=== PATIENT | female | born 1990 | race Caucasian/White ===

== ENCOUNTER 2019-12-25 23:24 | Emergency (ER) | payer OTHER ==
[~2019-12-25] VITALS: Ht 154.9 cm; Wt 92.6 kg
[2019-12-25 23:24] VITALS: BP 127/86
[~2019-12-25 23:24] MED LIST: DOXY100T PO; IBUP200T44 PO; ONDA4TAB7 PO; PRE NATAL
[2019-12-26 00:23] LABS: BASO % 1 % (0-3); EOS # 0.2 x10^3/uL (0.0-0.7); EOS % 2 % (0-3); HEMOGLOBIN 13.6 g/dL (12.0-15.5); LYMPH # 2.2 x10^3/uL (1.0-4.8); LYMPH % 30 % (24-48); MEAN CORPUSCULAR HEMOGLOBIN 30 pg (25-35); MEAN CORPUSCULAR HGB CONC 33 g/dL (31-37); MEAN CORPUSCULAR VOLUME 90 fL (79-100); MONO # 0.4 x10^3/uL (0.0-1.1); MONO % 6 % (0-9); NEUT # 4.6 x10^3uL (1.8-7.7); NEUT % 62 % (31-73); PLATELET COUNT 198 x10^3/uL (140-400); RED BLOOD COUNT 4.55 x10^6/uL (3.50-5.40); RED CELL DISTRIBUTION WIDTH 12.7 % (11.5-14.5); WHITE BLOOD COUNT 7.5 x10^3/uL (4.0-11.0)
--- NOTE | 2019-12-26 01:20 | RAD ---
INDICATION: Reason: vaginal bleeding, / Spl. Instructions: / History: COMPARISON: None. TECHNIQUE: Grayscale and color ultrasound images uterus and adnexa. Transvaginal images were obtained better visualize structures FINDINGS: The bilateral maternal ovaries are obscured. Uterus measures 110 x 71 x 62 mm. Intrauterine gestational sac is identified with a pole seen with crown-rump length of 5 mm and a heartbeat of 127. Too early in to adequately assess placenta. IMPRESSION: * Intrauterine is identified with estimated gestational age of 6 weeks and 1 day with a positive heartbeat. Recommend routine anomaly screening at 18-22 weeks. Electronically signed by: Raciel Oro MD (12/26/2019 1:17 AM) [id number]
[2019-12-26 02:27] LABS: BACTERIA,URINE 0 /HPF (0-FEW); BILIRUBIN,URINE NEG (NEG); CLARITY,URINE CLEAR; COLOR,URINE YELLOW; GLUCOSE,URINE NEG (NEG); NITRITE,URINE NEG (NEG); RBC,URINE 0 /HPF (0-2); SQUAMOUS EPITHELIAL CELL,UR OCC /LPF; UROBILINOGEN,URINE 0.2 mg/dL (0.2 mg/dL); WBC,URINE OCC /HPF (0-4)
--- NOTE | 2019-12-26 02:30 | PHYS DOC ---
Past History Past Medical History: No Pertinent History Past Surgical History: Cholecystectomy, Smoking: Non-smoker Alcohol Use: Occasionally Drug Use: None Adult General Chief Complaint Chief Complaint: ABDOMINAL PAIN IN HPI HPI Patient is a 29-year-old G6, P3 who presents to the emergency room with vaginal bleeding and cramping. Patient is unsure how far along she is. She has had a positive test 2 weeks ago. She states that it was a small amount of bleeding. She is unsure when her last period was. She denies any other compla ints. She has not had any urinary symptoms. Review of Systems Review of Systems General: Denies fever, chills, sweats, fatigue Eyes: Denies drainage, blurred vision, eye redness HENT: Denies rhinorrhea, sore throat, earache Respiratory: Denies cough, shortness of breath, wheezing Cardiac: Denies edema, palpitations, chest pain GI: Denies abdominal pain, Nausea, vomiting MSK: Denies back pain, neck pain Skin: Denies rash, jaundice Neuro: Denies headache, dizziness Psychiatric: Denies SI/HI Allergies Allergies Allergies Coded Allergies Type Severity Reaction Last Updated Verified latex Allergy Mild rash 06/27/14 Yes Physical Exam Physical Exam General: Awake, alert, NAD. Well Nourished, well hydrated. Cooperative HEENT: Atraumatic, EOMI, PERRL, airway patent, moist oral mucosa Neck: Supple, trachea midline Respiratory: CTA bilaterally, normal effort, no wheezing/crackles CV: RRR, no murmur, cap refill <2 GI: Soft, nondistended, nontender, no masses MSK: No obvious deformities Skin: Warm, dry, intact Neuro: A&O x3, speech NL, sensory and motor grossly intact, no focal deficits Psych: Normal affect, normal mood, not suicidal or homicidal Current Patient Data Vital Signs Vital Signs Date Time Temp Pulse Resp B/P (MAP) Pulse Ox O2 Delivery O2 Flow Rate FiO2 12/25/19 23:24 98.7 79 16 127/86 (100) 98 Room Air Lab Results Laboratory Tests Test 12/26/19 00:10 12/26/19 01:55 12/26/19 02:16 White Blood Count 7.5 x10^3/uL (4.0-11.0) Red Blood Count 4.55 x10^6/uL (3.50-5.40) Hemoglobin 13.6 g/dL (12.0-15.5) Hematocrit 41.0 % (36.0-47.0) Mean Corpuscular Volume 90 fL (79-100) Mean Corpuscular Hemoglobin 30 pg (25-35) Mean Corpuscular Hemoglobin Concent 33 g/dL (31-37) Red Cell Distribution Width 12.7 % (11.5-14.5) Platelet Count 198 x10^3/uL (140-400) Neutrophils (%) (Auto) 62 % (31-73) Lymphocytes (%) (Auto) 30 % (24-48) Monocytes (%) (Auto) 6 % (0-9) Eosinophils (%) (Auto) 2 % (0-3) Basophils (%) (Auto) 1 % (0-3) Neutrophils # (Auto) 4.6 x10^3uL (1.8-7.7) Lymphocytes # (Auto) 2.2 x10^3/uL (1.0-4.8) Monocytes # (Auto) 0.4 x10^3/uL (0.0-1.1) Eosinophils # (Auto) 0.2 x10^3/uL (0.0-0.7) Basophils # (Auto) 0.0 x10^3/uL (0.0-0.2) Urine Collection Type Unknown Urine Color Yellow Urine Clarity Clear Urine pH 7.0 Urine Specific [place] 1.025 Urine Protein Neg (NEG-TRACE) Urine Glucose (UA) Neg mg/dL (NEG) Urine Ketones (Stick) Trace mg/dL (NEG) Urine Blood Neg (NEG) Urine Nitrite Neg (NEG) Urine Bilirubin Neg (NEG) Urine Urobilinogen Dipstick 0.2 mg/dL (0.2 mg/dL) Urine Leukocyte Esterase Neg (NEG) Urine RBC 0 /HPF (0-2) Urine WBC Occ /HPF (0-4) Urine Squamous Epithelial Cells Occ /LPF Urine Bacteria 0 /HPF (0-FEW) POC Urine HCG, Qualitative hcg positive (Negative) EKG EKG [] Radiology/Procedures Radiology/Procedures [] Heart Score Risk Factors: Risk Factors: DM, Current or recent (<one month) smoker, HTN, HLP, family history of CAD, obesity. Risk Scores: Risk Factors: DM, Current or recent (<one month) smoker, HTN, HLP, family history of CAD, obesity. Course & Med Decision Making Course & Med Decision Making Pertinent Labs and Imaging studies reviewed. (See chart for details) Patient is a 29 year-old G 6 P 3 who presents to the Emergency Room with vaginal bleeding and abdominal cramping. Patient has been on seen passage of tissue. She has not had a formal ultrasound and does not have a confirmed IUP. UA, Rh type, OB ultrasound, test were ordered. At this time, ultrasound shows IUP. Patient does not need rhogam. I have discussed with the patient that they are likely have a threatened . We have discussed early on in we are unable to prevent miscarriages. We will discussed pelvic rest until she follows up with OBGYN. She will return to the Emergency Room if she has a large amount of bleeding, syncope, SOB. Patient's test results and vitals while in the ED were fully reviewed and discussed with the patient. Patient is stable and at this time does not need admission to the hospital. We have discussed strict return precautions and the importance of following up with their Primary Care Physician. Patient stated understanding and was given an opportunity to ask any questions. Dragon Disclaimer Dragon Disclaimer This electronic medical record was generated, in whole or in part, using a voice recognition dictation system. Departure Departure: Impression: Primary Impression: Bleeding in early Disposition: 01 DC HOME SELF CARE/HOMELESS Condition: STABLE Referrals: MINE CARRILLO MD (PCP) Patient Instructions: Vaginal Bleeding During , First Trimester TAE IVERSON MD Dec 26, 2019 02:30
== END 2019-12-26 02:50 | disposition home or self-care (01) ==
LOC: ER 23:24
DX: O46.91 Antepartum hemorrhage, unspecified, first trimester (principal); Z3A.01 Less than 8 weeks gestation of pregnancy; Z90.49 Acquired absence of other specified parts of digestive tract; Z98.890 Other specified postprocedural states; Z91.040 Latex allergy status
CPT/HCPCS: 36415; 76817; 81001; 81025; 85025; 86850; 86900; 86901; 99284

== ENCOUNTER 2020-06-27 21:01 | Emergency (ER) | payer OTHER ==
[~2020-06-27] VITALS: Ht 154.9 cm; Wt 92.6 kg
--- NOTE | 2020-06-27 21:08 | PHYS DOC ---
Past History Past Medical History: No Pertinent History Past Surgical History: Cholecystectomy, Smoking: Non-smoker Alcohol Use: Occasionally Drug Use: None Adult General Chief Complaint Chief Complaint: ABDOMINAL PAIN IN [facility] Patient is a female at 36w0d presenting for vaginal fluid loss. Reports painless passage of "maybe 2oz clear fluid" from vagina ~2 hours SKIN FORMER. Has continued to feel baby move, no contractions reported, unsure if she lost the rest of her mucus plug or her water. No AP, vaginal bleeding, fever or other concerning symptoms Review of Systems Review of Systems Fourteen body systems of review of systems have been reviewed. See HPI for pertinent positives and negative responses, other bean all other systems are negative, non-pertinent or non-contributory Allergies Allergies Allergies Coded Allergies Type Severity Reaction Last Updated Verified latex Allergy Mild rash 06/27/14 Yes Physical Exam Physical Exam Constitutional: Well developed, well nourished, no acute distress, non-toxic appearance. HENT: Normocephalic, atraumatic, bilateral external ears normal, oropharynx moist, no oral exudates, nose normal. Eyes: PERRLA, EOMI, conjunctiva normal, no discharge. Neck: Normal range of motion, no tenderness, supple, no stridor. Cardiovascular: Heart rate regular, sinus rhythm, no murmurs rubs or gallops Lungs & Thorax: Bilateral breath sounds clear to auscultation Abdomen: Bowel sounds normal, soft, gravid, no tenderness, no masses, no pulsatile masses. Nonsurgical abdomen, no peritoneal signs Vagina exam performed, patient external genitalia unremarkable, sterile manual exam did not appreciate significant cervix dilation/effacement/palpable parts etc Skin: Warm, dry, no erythema, no rash. Back: No tenderness, no CVA tenderness. Extremities: No tenderness, no cyanosis, no clubbing, ROM intact, no edema. Neurologic: Alert and oriented X 3, grossly normal motor & sensory function, no focal deficits noted. Psychologic: Affect normal, judgement normal, mood normal. Current Patient Data Vital Signs Vital Signs Date Time Temp Pulse Resp B/P (MAP) Pulse Ox O2 Delivery O2 Flow Rate FiO2 06/27/20 21:01 98.6 88 18 128/75 (92) 99 Room Air Vital Signs Date Time Temp Pulse Resp B/P (MAP) Pulse Ox O2 Delivery O2 Flow Rate FiO2 06/27/20 22:40 80 18 134/66 (88) 96 Room Air 06/27/20 21:01 98.6 EKG EKG [] Radiology/Procedures Radiology/Procedures [] Heart Score C/O Chest Pain: No HEART Score for Chest Pain: HEART Score for Chest Pain Response (Comments) Value History Slighlty/Non-Suspicious 0 Age < 45 0 Total 0 Risk Factors: Risk Factors: DM, Current or recent (<one month) smoker, HTN, HLP, family history of CAD, obesity. Risk Scores: Risk Factors: DM, Current or recent (<one month) smoker, HTN, HLP, family history of CAD, obesity. Course & Med Decision Making Course & Med Decision Making VSS. HPI concerning for loss of vaginal fluids. PE unremarkable Negative amniosure/pH testing, FHT 156 Patient monitored in ER extensively and patient's OBGYN contacted and case reviewed. Joint agreement to discharge patient with follow-up in clinic next business day for evaluation Strict return precautions discussed with good understanding by patient, all questions and concerns addressed prior to departure Dragon Disclaimer Dragon Disclaimer This electronic medical record was generated, in whole or in part, using a voice recognition dictation system. Departure Departure: Impression: Primary Impression: and not yet delivered in third trimester Disposition: 01 HOME / SELF CARE / HOMELESS Condition: STABLE Referrals: MINE CARRILLO MD (PCP) Patient Instructions: ABCs of , - Third Trimester Additional Instructions: As discussed prior to ER departure, there was no obvious signs of loss of amniotic fluid or other findings that would indicate further diagnostic work-up in ER setting or hospital admission/transfer to facility with obstetric services. I contacted your ASSISTANT PRESS OPERATOR and reviewed your case at length, there is no indication for further intervention while in ER setting. As discussed, please call your ASSISTANT PRESS OPERATOR first thing in the morning to set up outpatient follow-up for repeat evaluation. It was a pleasure to take care of you and I wish you the best going forward HUMERA HOFF DO Jun 27, 2020 21:08
[2020-06-27 22:40] VITALS: BP 134/66
== END 2020-06-27 22:40 | disposition home or self-care (01) ==
LOC: ER 21:01
DX: O41.8X30 Other specified disorders of amniotic fluid and membranes, third trimester, not applicable or unspecified (principal); Z3A.36 36 weeks gestation of pregnancy; Z91.040 Latex allergy status
CPT/HCPCS: 99284

== ENCOUNTER 2020-09-11 19:48 | Emergency (ER) | payer OTHER ==
[~2020-09-11] VITALS: Ht 154.9 cm; Wt 100.2 kg
--- NOTE | 2020-09-11 19:51 | PHYS DOC ---
Past History Past Medical History: No Pertinent History, Kidney Stones, STD, UTI Past Surgical History: Cholecystectomy, Smoking: Non-smoker Alcohol Use: Occasionally Drug Use: None General Adult HPI: HPI: ".. I hurting really bad.. it started yesterday.. but it got better so .. I did not come in.. It may be a kidney stone.. I had one in past on this side.. I just had delivery.. a month ago.. " Patient is a 29 year old female who presents with above hx and complaints of pain abdomen, nausea,, cramping and severe right flank pain. Patient follows with Dr. Carrillo. Patient has history of 7 -4 C-sections and 3 spontaneous abortions. Patient denies any intake bad food. No travel. No specific ill contacts. Patient has a past history of kidney stones, chlamydia in the past. Patient has had 14 lifetime sexual partners. Has only had 1 partner for the last 8 years. . No specific ill contacts. No history of trauma. No history immunosuppression. Patient has had cholecystectomy. Review of Systems: Review of Systems: Constitutional: Denies fever or chills Eyes: Denies change in visual acuity HENT: Denies nasal congestion or sore throat Respiratory: Denies cough or shortness of breath Cardiovascular: Denies chest pain or edema GI: Denies abdominal pain, nausea, vomiting, bloody stools or diarrhea : Denies dysuria Musculoskeletal: Denies back pain or joint pain Integument: Denies rash Neurologic: Denies headache, focal weakness or sensory changes Endocrine: Denies polyuria or polydipsia Lymphatic: Denies swollen glands Psychiatric: Denies depression or anxiety Family History: Family History: Noncontributory to presentation Current Medications: Current Meds: See nursing for home meds Allergies: Allergies: Allergies Coded Allergies Type Severity Reaction Last Updated Verified latex Allergy Mild rash 06/27/14 Yes Physical Exam: PE: Constitutional: In acute distress, non-toxic appearance. [] HENT: Normocephalic, atraumatic, bilateral external ears normal, oropharynx moist, no oral exudates, nose normal. [] Eyes: PERRLA, EOMI, conjunctiva normal, no discharge. [] Neck: Normal range of motion, no tenderness, supple, no stridor. [] Cardiovascular:Heart rate regular rhythm, no murmur [] Lungs & Thorax: Bilateral breath sounds clear to auscultation [] Abdomen: Bowel sounds decreased, soft, no tenderness, no masses, no pulsatile masses. Obese. Right flank tenderness. Rebound right flank Skin: Warm, dry, no erythema, no rash. [] Back: No tenderness, no CVA tenderness. [] Extremities: No tenderness, no cyanosis, no clubbing, ROM intact, no edema. No cording. No psoas. Neurologic: Alert and oriented X 3, normal motor function, normal sensory function, no focal deficits noted. [] Psychologic: Affect anxious, judgement normal, mood normal. [] EKG: EKG: [] Radiology/Procedures: Radiology/Procedures: [][place] [id number] IMAGING REPORT Signed PATIENT: SAM SEVERINO ACCOUNT: [id number] : 1990 LOCATION: ER AGE: 29 SEX: F EXAM STATUS: REG ER ORD. PHYSICIAN: EDDIE FAN MD REASON: Flank pain RT. HX 4 WKS AGO,CHOLECYSTECOMY,KIDNEY STONE PROCEDURE: CT ABDOMEN PELVIS WO CONTRAST Examination: CT of the abdomen pelvis without contrast HISTORY: History of flank pain COMPARISON: None available Technique: Axial CT images of the abdomen pelvis were performed without contrast. Coronal and sagittal reformats are performed Exposure: One or more of the following individualized dose reduction techniques were utilized for this examination: 1. Automated exposure control 2. Adjustment of the mA and/or kV according to patient size 3. Use of iterative reconstruction technique FINDINGS: The bibasilar lungs are clear. 3.5 mm nodule right middle lobe of the lung. No evidence of free air identified in the abdomen. The evaluation of the solid organs is limited due to lack of IV contrast. The evaluation of bowel is limited due to lack of oral contrast. The visualized noncontrasted liver, spleen, adrenals grossly appears unremarkable Cholecystectomy changes. The stomach is mildly distended. The visualized pancreas grossly appears unremarkable. The small bowel is nondilated. The appendix is normal. Feces and gas identified in the colon. Urinary bladder is mildly distended. Punctate bilateral intrarenal collecting system calculi i dentified. Moderate right-sided hydronephrosis and hydroureter identified with 7 mm calculus identified in the distal right ureter. Urinary bladder is mildly distended. Mild fat stranding identified deep to the lower anterior abdominal wall Mild degenerative disease thoracolumbar spine. IMPRESSION: 1. 7 mm calculus identified in the distal right ureter causing moderate right-sided hydronephrosis and hydroureter. 2. Punctate bilateral intrarenal collecting system calculi. 3. Mild fat stranding identified deep to the lower anterior abdominal wall, nonspecific. 4. 3.5 mm nodule right middle lobe of the lung. Electronically signed by: Burt Solano MD (09/11/2020 10:02 PM) [id number] DICTATED AND SIGNED BY: BURT SOLANO MD DATE: 09/11/202155 CC: EDDIE FAN MD; MINE CARRILLO MD ~[facility]0 [address] [place] [address] IMAGING REPORT Signed PATIENT: SAM SEVERINO ACCOUNT: [id number] : 1990 LOCATION: ER AGE: 29 SEX: F EXAM STATUS: REG ER ORD. PHYSICIAN: EDDIE FAN MD REASON: Flank pain RT. HX 4 WKS AGO,CHOLECYSTECOMY,KIDNEY STONE PROCEDURE: ACUTE ABDOMEN SERIES Acute Abdominal Series: 09/11/2020 9:25 PM Reason for study: Reason: Flank pain RT. HX 4 WKS AGO,CHOLECYSTECOMY,KIDNEY STONE / Spl. Instructions: / History: . Comparison studies: Right flank pain. 4 weeks ago. . Technique: Frontal view of the chest was obtained along with supine and upright views of the abdomen. Findings: Nonobstructive bowel gas pattern. No air fluid levels or free air. No dilated loops of small or large bowel. Stomach is mildly distended. The lungs are clear without acute consolidative opacity. No pleural effusion or pneumothorax. The cardiac and mediastinal contours are normal. Visualized osseous structures are intact. Cholecystectomy changes are present. Bladder is mildly distended. IMPRESSION: 1. Nonobstructed bowel gas pattern. 2. No acute cardiopulmonary findings. Electronically signed by: Dominique Izquierdo MD (09/11/2020 10:07 PM) [facility] DICTATED AND SIGNED BY: DOMINIQUE IZQUIERDO MD DATE: 09/11/202205 CC: EDDIE FAN MD; MINE CARRILLO MD ~[facility] 0 Heart Score: C/O Chest Pain: N/A Risk Factors: Risk Factors: DM, Current or recent (<one month) smoker, HTN, HLP, family history of CAD, obesity. Risk Scores: Score 0 - 3: 2.5% MACE over next 6 weeks - Discharge Home Score 4 - 6: 20.3% MACE over next 6 weeks - Admit for Clinical Observation Score 7 - 10: 72.7% MACE over next 6 weeks - Early Invasive Strategies Course & Med Decision Making: Course & Med Decision Making Pertinent Labs and Imaging studies reviewed. (See chart for details) Push fluids, take Flomax, Tylenol and Ibuprofen for pain. Marked pain take Vicoprofen. Zofran for nasuea and vomiting. Follow up with primary. Follow up with Urology. Consider Dr. [phone]. Impression: 1. Distal 7mm Rt. Ureter Kidney stone 2. Hematuria [] Dragon Disclaimer: Dragon Disclaimer: This electronic medical record was generated, in whole or in part, using a voice recognition dictation system. Departure Departure: Referrals: MINE CARRILLO MD (PCP) Scripts Hydrocodone/Ibuprofen (HYDROCODONE-IBUPROFEN 7.5-200 ) 1 Each Tablet 1 TAB PO PRN Q6HRS PRN for PAIN, #30 TAB 0 Refills Prov: EDDIE FAN MD 09/11/20 Ondansetron Hcl (ZOFRAN) 4 Mg Tablet 8 MG PO QIDPRN PRN for nv, #30 TAB Prov: EDDIE FAN MD 09/11/20 Tamsulosin Hcl (FLOMAX) 0.4 Mg Cap.er.24h 0.4 MG PO DAILY for kidney stone, #30 CAP.SR Prov: EDDIE FAN MD 09/11/20 EDDIE FAN MD Sep 11, 2020 19:51
[2020-09-11 20:02] VITALS: BP 150/102
[2020-09-11] MEDS ORDERED: IV RINGERS SOLUTION,LACTATED 1,000 ML IV SCH (20:15)
[2020-09-11] MEDS ORDERED: ONDANSETRON PF 4 MG/2 ML VIAL. IVP ONE (20:15)
[2020-09-11] MEDS ORDERED: MORPHINE SULFATE 10 MG/ML SYRINGE. SQ ONE ×2 (20:15)
[2020-09-11] MEDS ORDERED: FAMOTIDINE 20 MG/2 ML VIAL IVP ONE (20:15)
[2020-09-11 20:39] LABS: BARBITURATES NEG (NEG); BENZODIAZEPINES NEG (NEG); CANNABINOIDS NEG (NEG); COCAINE NEG (NEG); METHADONE NEG (NEG); OPIATES NEG (NEG); PHENCYCLIDINE NEG (NEG)
[2020-09-11 20:40] LABS: AMPHETAMINE/METHAMPHETAMINE NEG (NEG)
[2020-09-11 20:45] LABS: BASO % 0 % (0-3); EOS # 0.4 x10^3/uL (0.0-0.7); EOS % 5 % (0-3); HEMATOCRIT 38.5 % (36.0-47.0); HEMOGLOBIN 12.9 g/dL (12.0-15.5); LYMPH # 2.4 x10^3/uL (1.0-4.8); LYMPH % 31 % (24-48); MEAN CORPUSCULAR HEMOGLOBIN 29 pg (25-35); MEAN CORPUSCULAR HGB CONC 34 g/dL (31-37); MEAN CORPUSCULAR VOLUME 88 fL (79-100); MONO # 0.5 x10^3/uL (0.0-1.1); MONO % 7 % (0-9); NEUT # 4.5 x10^3uL (1.8-7.7); NEUT % 58 % (31-73); PLATELET COUNT 152 x10^3/uL (140-400); RED BLOOD COUNT 4.39 x10^6/uL (3.50-5.40); RED CELL DISTRIBUTION WIDTH 13.4 % (11.5-14.5); WHITE BLOOD COUNT 7.8 x10^3/uL (4.0-11.0)
[2020-09-11 20:50] LABS: BACTERIA,URINE 0 /HPF (0-FEW); BILIRUBIN,URINE NEG (NEG); CLARITY,URINE HAZY; COLOR,URINE YELLOW; GLUCOSE,URINE NEG (NEG); NITRITE,URINE NEG (NEG); RBC,URINE >40 /HPF (0-2); SQUAMOUS EPITHELIAL CELL,UR MOD /LPF; UROBILINOGEN,URINE 0.2 mg/dL (0.2 mg/dL); WBC,URINE 0 /HPF (0-4)
[2020-09-11 20:52] LABS: CALCIUM 7.9 mg/dL (8.5-10.1); CREATININE 0.7 mg/dL (0.6-1.0); GFR 100.4; POTASSIUM 3.6 mmol/L (3.5-5.1)
[2020-09-11 20:57] LABS: ALBUMIN 3.5 g/dL (3.4-5.0); DIRECT BILIRUBIN 0.1 mg/dL (0.0-0.2); TOTAL BILIRUBIN 0.3 mg/dL (0.2-1.0); TOTAL PROTEIN 6.5 g/dL (6.4-8.2)
[2020-09-11] MEDS ORDERED: KETOROLAC 30 MG/ML VIAL. IVP ONE (21:30)
--- NOTE | 2020-09-11 22:05 | RAD ---
Examination: CT of the abdomen pelvis without contrast HISTORY: History of flank pain COMPARISON: None available Technique: Axial CT images of the abdomen pelvis were performed without contrast. Coronal and sagitta l reformats are performed Exposure: One or more of the following individualized dose reduction techniques were utilized for thi s examination: 1. Automated exposure control 2. Adjustment of the mA and/or kV according to patient size 3. Use of iterative reconstruction technique FINDINGS: The bibasilar lungs are clear. 3.5 mm nodule right middle lobe of the lung. No evidence of free air i dentified in the abdomen. The evaluation of the solid organs is limited due to lack of IV contrast. T he evaluation of bowel is limited due to lack of oral contrast. The visualized noncontrasted liver, s pleen, adrenals grossly appears unremarkable Cholecystectomy changes. The stomach is mildly distended. The visualized pancreas grossly appears unr emarkable. The small bowel is nondilated. The appendix is normal. Feces and gas identified in the col on. Urinary bladder is mildly distended. Punctate bilateral intrarenal collecting system calculi iden tified. Moderate right-sided hydronephrosis and hydroureter identified with 7 mm calculus identified in the distal right ureter. Urinary bladder is mildly distended. Mild fat stranding identified deep t o the lower anterior abdominal wall Mild degenerative disease thoracolumbar spine. IMPRESSION: 1. 7 mm calculus identified in the distal right ureter causing moderate right-sided hydronephrosis a nd hydroureter. 2. Punctate bilateral intrarenal collecting system calculi. 3. Mild fat stranding identified deep to the lower anterior abdominal wall, nonspecific. 4. 3.5 mm nodule right middle lobe of the lung. Electronically signed by: Burt Solano MD (09/11/2020 10:02 PM) [id number]
--- NOTE | 2020-09-11 22:09 | RAD ---
Acute Abdominal Series: 09/11/2020 9:25 PM Reason for study: Reason: Flank pain RT. HX 4 WKS AGO,CHOLECYSTECOMY,KIDNEY STONE / Spl. In structions: / History: . Comparison studies: Right flank pain. 4 weeks ago. . Technique: Frontal view of the chest was obtained along with supine and upright views of the abdomen. Findings: Nonobstructive bowel gas pattern. No air fluid levels or free air. No dilated loops of small or large bowel. Stomach is mildly distended. The lungs are clear without acute consolidative opacity. No pleural effusion or pneumothorax. The car diac and mediastinal contours are normal. Visualized osseous structures are intact. Cholecystectomy changes are present. Bladder is mildly dist ended. IMPRESSION: 1. Nonobstructed bowel gas pattern. 2. No acute cardiopulmonary findings. Electronically signed by: Clover Escobar MD (09/11/2020 10:07 PM) [facility]
[2020-09-11] MEDS ORDERED: TAMS0.4C97 PO (22:35)
[2020-09-11] MEDS ORDERED: ONDA4TAB7 PO (22:38)
[2020-09-11] MEDS ORDERED: HYDR-1179 PO (22:38)
[2020-09-11] MEDS ORDERED: TAMSULOSIN 0.4 MG CAP.ER.24H. PO ONE (23:30)
== END 2020-09-11 23:31 | disposition home or self-care (01) ==
LOC: ER 19:48
DX: N20.0 Calculus of kidney (principal); R31.9 Hematuria, unspecified; Z90.49 Acquired absence of other specified parts of digestive tract; Z91.040 Latex allergy status
CPT/HCPCS: 36415; 74022; 74176; 80048; 80076; 80307; 81001; 81025; 82150; 82550; 83690; 85025; 96361; 96372; 96374; 96375; 99285; J1885; J2270; J2405; J3490; J7120

== ENCOUNTER 2020-10-26 19:44 | Emergency (ER) | payer OTHER ==
[~2020-10-26] VITALS: Ht 154.9 cm; Wt 100.2 kg
[~2020-10-26 19:44] MED LIST changes: +HYDR-1179 PO; +TAMS0.4C97 PO
[2020-10-26] MEDS ORDERED: ONDANSETRON PF 4 MG/2 ML VIAL. IVP ONE (20:00)
[2020-10-26] MEDS ORDERED: IV NORMAL SALINE 1,000ML 1,000 ML IV ONE (20:00)
--- NOTE | 2020-10-26 20:04 | PHYS DOC ---
Past History Past Medical History: No Pertinent History, Kidney Stones, STD, UTI Past Surgical History: Cholecystectomy, Smoking: Non-smoker Alcohol Use: None Drug Use: None General Adult EDM: Chief Complaint: FLANK PAIN HPI: HPI: Patient is a 29-year-old female being seen in the ER for right flank pain that radiates into her abdomen that started this morning. Patient rates pain 9 out of 10. No treatment prior to arrival. Patient is also reporting nausea. She denies any fevers, vomiting, diarrhea. Patient was seen in this ER on September 11 and diagnosed with a 7 mm stone and she was discharged home with pain medication, nausea medication, and Flomax. Patient states that she believes she had passed that stone. Review of Systems: Review of Systems: 14 body systems of the review of systems have been reviewed. See HPI for pertinent positive and negative responses, otherwise all other systems are negative, nonpertinent or noncontributory Allergies: Allergies: Allergies Coded Allergies Type Severity Reaction Last Updated Verified latex Allergy Mild rash 09/11/20 Yes Physical Exam: PE: Constitutional: Well developed, well nourished, no acute distress, non-toxic appearance. [] HENT: Normocephalic, atraumatic, bilateral external ears normal, oropharynx moist, no oral exudates, nose normal. [] Eyes: PERRL, EOMI, conjunctiva normal, no discharge. [] Neck: Normal range of motion, no tenderness, supple, no stridor. [] Cardiovascular:Heart rate regular rhythm, no murmur [] Lungs & Thorax: Bilateral breath sounds clear to auscultation [] Abdomen: Bowel sounds normal, soft, no tenderness, no masses, no pulsatile masses. [] Skin: Warm, dry, no erythema, no rash. [] Back: No tenderness, right-sided CVA tenderness Extremities: No tenderness, no cyanosis, no clubbing, ROM intact, no edema. [] Neurologic: Alert and oriented X 3, normal motor function, normal sensory function, no focal deficits noted. [] Psychologic: Affect normal, judgement normal, mood normal. [] Current Patient Data: Labs: Laboratory Tests Test 10/26/20 19:50 10/26/20 20:08 10/26/20 20:15 Urine Collection Type Unknown Urine Color Yellow Urine Clarity Clear Urine pH 5.5 Urine Specific Maribel >=1.030 Urine Protein Trace Urine Glucose (UA) Neg mg/dL Urine Ketones (Stick) Neg mg/dL Urine Blood Neg Urine Nitrite Neg Urine Bilirubin Neg Urine Urobilinogen Dipstick 0.2 mg/dL Urine Leukocyte Esterase Neg Urine RBC 0 /HPF Urine WBC Occ /HPF Urine Squamous Epithelial Cells Mod /LPF Urine Bacteria 0 /HPF Bedside Urine HCG, Qualitative hcg negative White Blood Count 8.1 x10^3/uL Red Blood Count 4.55 x10^6/uL Hemoglobin 13.2 g/dL Hematocrit 39.6 % Mean Corpuscular Volume 87 fL Mean Corpuscular Hemoglobin 29 pg Mean Corpuscular Hemoglobin Concent 33 g/dL Red Cell Distribution Width 13.7 % Platelet Count 214 x10^3/uL Neutrophils (%) (Auto) 63 % Lymphocytes (%) (Auto) 28 % Monocytes (%) (Auto) 7 % Eosinophils (%) (Auto) 1 % Basophils (%) (Auto) 1 % Neutrophils # (Auto) 5.1 x10^3uL Lymphocytes # (Auto) 2.3 x10^3/uL Monocytes # (Auto) 0.6 x10^3/uL Eosinophils # (Auto) 0.1 x10^3/uL Basophils # (Auto) 0.0 x10^3/uL Sodium Level 140 mmol/L Potassium Level 3.9 mmol/L Chloride Level 105 mmol/L Carbon Dioxide Level 22 mmol/L Anion Gap 13 Blood Urea Nitrogen 15 mg/dL Creatinine 0.9 mg/dL Estimated GFR (Cockcroft-Gault) 75.1 BUN/Creatinine Ratio 17 Glucose Level 133 mg/dL Calcium Level 8.5 mg/dL Total Bilirubin 0.4 mg/dL Aspartate Amino Transf (AST/SGOT) 27 U/L Alanine Aminotransferase (ALT/SGPT) 47 U/L Alkaline Phosphatase 111 U/L Total Protein 7.2 g/dL Albumin 3.9 g/dL Albumin/Globulin Ratio 1.2 Lipase 57 U/L Current Medications Medications (Trade) Dose Ordered Sig/Ariel Route PRN Reason Start Time Stop Time Status Last Admin Dose Admin Sodium Chloride 1,000 ml @ 1,000 mls/hr 1X ONCE IV 10/26/20 20:00 10/26/20 20:59 10/26/20 20:11 Ondansetron HCl (Zofran) 4 mg 1X ONCE IVP 10/26/20 20:00 10/26/20 20:20 DC 10/26/20 20:11 Fentanyl Citrate (Fentanyl 2ml Vial) 50 mcg 1X ONCE IVP 10/26/20 20:00 10/26/20 20:20 DC 10/26/20 20:12 Fentanyl Citrate (Fentanyl 2ml Vial) 50 mcg 1X ONCE IVP 10/26/20 20:45 10/26/20 20:46 UNV Tamsulosin HCl (Flomax) 0.4 mg 1X ONCE PO 10/26/20 21:00 10/26/20 21:01 UNV EKG: EKG: [] Radiology/Procedures: Radiology/Procedures: REASON: flank pain, r/o stone, RIGHT SIDE PAIN PROCEDURE: CT ABDOMEN PELVIS WO CONTRAST Examination: CT of the abdomen pelvis without contrast HISTORY: History of flank pain COMPARISON: 09/11/2020 TECHNIQUE: Axial CT images of the abdomen pelvis were performed without contrast. Coronal and sagittal reformats are performed Exposure: One or more of the following individualized dose reduction techniques were utilized for this examination: 1. Automated exposure control 2. Adjustment of the mA and/or kV according to patient size 3. Use of iterative reconstruction technique FINDINGS: The bibasilar lungs are clear. No evidence of free air identified in the abdomen. The evaluation of the solid organs is limited due to lack of IV contrast. The evaluation of bowel is limited due to lack of oral contrast. There are diffuse decreased attenuation noted in the liver likely hepatic steatosis. The spleen, adrenals grossly appears unremarkable. The stomach is mildly distended. The visualized pancreas grossly appears unremarkable. The small bowel is nondilated. The appendix is normal. Feces and gas noted in the colon.. Urinary bladder is mildly distended Punctate bilateral intrarenal collecting system calculi measuring 3 mm in the right and left kidneys.. Moderate right-sided hydronephrosis and hydroureter identified with a 6 mm calculus identified at right ureterovesical junction. No evidence of lytic bony destructive lesion. IMPRESSION: 1. 6 mm calculus identified at the right ureterovesical junction causing moderate right-sided hydronephrosis and hydroureter. 2. Punctate bilateral intrarenal collecting system calculi. 3. Hepatic steatosis. Electronically signed by: Burt Solano MD (10/26/2020 8:42 PM) [id number] DICTATED AND SIGNED BY: BURT SOLANO MD DATE: 10/26/202037 CC: MINE CARRILLO MD; ZANE FLOWER [employer] SERV[employer] WAITER ~MTH0 0 [] Heart Score: C/O Chest Pain: No Risk Factors: Risk Factors: DM, Current or recent (<one month) smoker, HTN, HLP, family history of CAD, obesity. Risk Scores: Score 0 - 3: 2.5% MACE over next 6 weeks - Discharge Home Score 4 - 6: 20.3% MACE over next 6 weeks - Admit for Clinical Observation Score 7 - 10: 72.7% MACE over next 6 weeks - Early Invasive Strategies Course & Med Decision Making: Course & Med Decision Making Pertinent Labs and Imaging studies reviewed. (See chart for details) [] Patient is a 29-year-old female being seen in the ER for right flank pain. Work-up in the ER consisted of urinalysis, blood work, CT scan of abdomen. Patient was treated with fluids, nausea medication and pain medication. Blood work unremarkable, urinalysis negative. Patient has normal kidney function and no leukocytosis. Patient is noted to have a 6 mm stone in the right UVJ. Patient given Flomax. Patient be discharged home with pain and nausea medication. Patient advised to increase fluids. I discussed with patient all findings and diagnostic testing as well as the need to follow-up with PCP for further evaluation and treatment or return to the ER if any new or worsening symptoms. Strict return precautions were also discussed at length. Patient voiced understanding and agreement with the plan. Patient is hemodynamically stable at the time of disposition. Dom Disclaimer: Dom Disclaimer: This electronic medical record was generated, in whole or in part, using a voice recognition dictation system. Departure Departure: Impression: Primary Impression: Kidney stone Disposition: HOME / SELF CARE / HOMELESS Condition: GOOD Referrals: MINE CARRILLO MD (PCP) Patient Instructions: Kidney Stones Additional Instructions: You were seen in the ER today for flank pain. You have a kidney stone that will hopefully pass. We are writing a prescription for pain medication and a medication to help dilate the ureter so that you can pass the stone more easily. You are also discharged home with medication for nausea. You should strain your urine and look for the stone. Increase your fluids. You will need to follow-up with urologist as soon as possible. You should return to the ER if you have worsening pain, fever, continued bloody urine, lightheadedness, shortness of breath, chest pain or any new or concerning symptoms. EMERGENCY DEPARTMENT GENERAL DISCHARGE INSTRUCTIONS Thank you for coming to [facility] (ED) today and trusting us with you care. We trust that you had a positivie experience in our Emergency Department. If you wish to speak to the department management, you may call the director at [phone]. YOUR FOLLOW UP INSTRUCTIONS ARE FOLLOWS: 1. Do you have a private Doctor? If you do not have a private doctor, please ask for a resource list of physicians or clinics that may be able to assist you with fol low up care. 2. The Emergency Physician has interpreted your x-rays. The X-Ray specialist will also review them. If there is a change in the findings, you will be notified in 48 hours when at all possible. 3. A lab test or culture has been done, your results will be reviewed and you will be notified if you need a change in treatment. ADDITIONAL INSTRUCTIONS AND INFORMATION: 1. Your care today has been supervised by a physician who is specially trained in emergency care. Many problems require more than one evaluation for a complete diagnosis and treatment. We recommend that you schedule your follow up appointment as r ecommended to ensure complete treatment of you illness or injury. If you are unable to obtain follow up care and continue to have a problem, or if your condition worsens, we recommend that you return to the ED. 2. We are not able to safely determine your condition over the phone nor are we able to give sound medical advice over the phone. For these safety reasons, if you call for medical advice we will ask you to come to the ED for further evaluation. 3. If you have any questions regarding these discharge instructions please call the ED at [phone]. SAFETY INFORMATION: In the interest of safety, wellness, and injury prevention; we encourage you to wear your sealbelt, if you smoke; quite smoking, and we encourage family to use a protective helmet for bicycling and other sporting events that present an increased risk for head injury. IF YOUR SYMPTOMS WORSEN OR NEW SYMPTOMS DEVELOP, OR YOU HAVE CONCERNS ABOUT YOUR CONDITION; OR IF YOUR CONDITION WORSENS WHILE YOU ARE WAITING FOR YOUR FOLLOW UP APPOINTMENT; EITHER CONTACT YOUR PRIMARY CARE DOCTOR, THE PHYSICIAN WHOSE NAME AND NUMBER YOU WERE GIVEN, OR RETURN TO THE ED IMMEDIATELY. Scripts Hydrocodone Bit/Acetaminophen (HYDROCODONE-APAP 5-325 ) 1 Each Tablet 1 TAB PO PRN Q6HRS PRN for PAIN for 3 Days, #12 TAB 0 Refills Prov: ZANE FLOWER APRN 10/26/20 Tamsulosin Hcl (FLOMAX) 0.4 Mg Cap.er.24h 1 CAP PO DAILY for kidney stone for 10 Days, #10 CAP 0 Refills Prov: ZANE FLOWER APRN 10/26/20 Ondansetron Hcl (ZOFRAN) 4 Mg Tablet 4 MG PO TID PRN PRN for NAUSEA for 5 Days, #15 TAB 0 Refills Prov: ZANE FLOWER APRN 10/26/20 ZANE FLOWER APRN Oct 26, 2020 20:04
[2020-10-26 20:15] LABS: BACTERIA,URINE 0 /HPF (0-FEW); BILIRUBIN,URINE NEG (NEG); CLARITY,URINE CLEAR; COLOR,URINE YELLOW; GLUCOSE,URINE NEG (NEG); NITRITE,URINE NEG (NEG); RBC,URINE 0 /HPF (0-2); UROBILINOGEN,URINE 0.2 mg/dL (0.2 mg/dL); WBC,URINE OCC /HPF (0-4)
[2020-10-26 20:16] LABS: SQUAMOUS EPITHELIAL CELL,UR MOD /LPF
[2020-10-26 20:25] LABS: BASO % 1 % (0-3); EOS # 0.1 x10^3/uL (0.0-0.7); EOS % 1 % (0-3); HEMATOCRIT 39.6 % (36.0-47.0); HEMOGLOBIN 13.2 g/dL (12.0-15.5); LYMPH # 2.3 x10^3/uL (1.0-4.8); LYMPH % 28 % (24-48); MEAN CORPUSCULAR HEMOGLOBIN 29 pg (25-35); MEAN CORPUSCULAR HGB CONC 33 g/dL (31-37); MEAN CORPUSCULAR VOLUME 87 fL (79-100); MONO # 0.6 x10^3/uL (0.0-1.1); MONO % 7 % (0-9); NEUT # 5.1 x10^3uL (1.8-7.7); NEUT % 63 % (31-73); PLATELET COUNT 214 x10^3/uL (140-400); RED BLOOD COUNT 4.55 x10^6/uL (3.50-5.40); RED CELL DISTRIBUTION WIDTH 13.7 % (11.5-14.5); WHITE BLOOD COUNT 8.1 x10^3/uL (4.0-11.0)
[2020-10-26 20:33] LABS: CALCIUM 8.5 mg/dL (8.5-10.1); CREATININE 0.9 mg/dL (0.6-1.0); GFR 75.1; POTASSIUM 3.9 mmol/L (3.5-5.1)
[2020-10-26 20:39] LABS: ALBUMIN 3.9 g/dL (3.4-5.0); ALBUMIN/GLOBULIN RATIO 1.2 (1.0-1.7); TOTAL BILIRUBIN 0.4 mg/dL (0.2-1.0); TOTAL PROTEIN 7.2 g/dL (6.4-8.2)
--- NOTE | 2020-10-26 20:44 | RAD ---
Examination: CT of the abdomen pelvis without contrast HISTORY: History of flank pain COMPARISON: 09/11/2020 TECHNIQUE: Axial CT images of the abdomen pelvis were performed without contrast. Coronal and sagitta l reformats are performed Exposure: One or more of the following individualized dose reduction techniques were utilized for thi s examination: 1. Automated exposure control 2. Adjustment of the mA and/or kV according to patient size 3. Use of iterative reconstruction technique FINDINGS: The bibasilar lungs are clear. No evidence of free air identified in the abdomen. The evaluation of t he solid organs is limited due to lack of IV contrast. The evaluation of bowel is limited due to lack of oral contrast. There are diffuse decreased attenuation noted in the liver likely hepatic steatosi s. The spleen, adrenals grossly appears unremarkable. The stomach is mildly distended. The visualized pancreas grossly appears unremarkable. The small bowel is nondilated. The appendix is normal. Feces and gas noted in the colon.. Urinary bladder is mildly distended Punctate bilateral intrarenal collecting system calculi measuring 3 mm in the right and left kidneys. . Moderate right-sided hydronephrosis and hydroureter identified with a 6 mm calculus identified at r ight ureterovesical junction. No evidence of lytic bony destructive lesion. IMPRESSION: 1. 6 mm calculus identified at the right ureterovesical junction causing moderate right-sided hydron ephrosis and hydroureter. 2. Punctate bilateral intrarenal collecting system calculi. 3. Hepatic steatosis. Electronically signed by: Burt Solano MD (10/26/2020 8:42 PM) [id number]
[2020-10-26] MEDS ORDERED: HYDR-2155 PO (20:54)
[2020-10-26] MEDS ORDERED: ONDA4TAB7 PO (20:54)
[2020-10-26] MEDS ORDERED: TAMS0.4C97 PO (20:54)
[2020-10-26] MEDS ORDERED: TAMSULOSIN 0.4 MG CAP.ER.24H. PO ONE (21:00)
[2020-10-26 21:07] VITALS: BP 135/69
== END 2020-10-26 21:07 | disposition home or self-care (01) ==
LOC: ER 19:44
DX: N13.2 Hydronephrosis with renal and ureteral calculous obstruction (principal); Z87.442 Personal history of urinary calculi; Z87.440 Personal history of urinary (tract) infections; Z90.49 Acquired absence of other specified parts of digestive tract; Z98.890 Other specified postprocedural states; Z91.040 Latex allergy status
CPT/HCPCS: 36415; 74176; 80053; 81001; 81025; 83690; 85025; 96361; 96374; 96375; 96376; 99284; J2405; J3010; J7030

== ENCOUNTER 2021-01-16 18:45 | Emergency (ER) | payer OTHER ==
[~2021-01-16] VITALS: Ht 154.9 cm; Wt 90.9 kg
[~2021-01-16 18:45] MED LIST changes: +HYDR-2155 PO
--- NOTE | 2021-01-16 18:56 | PHYS DOC ---
Past History Past Medical History: No Pertinent History, Kidney Stones, STD, UTI Past Surgical History: Cholecystectomy, Smoking: Non-smoker Alcohol Use: Occasionally Drug Use: None Adult General HPI HPI Patient is a 30-year-old female with a significant past medical history for multiple episodes of kidney stones who presents with a chief complaint of left flank pain, 8 out of 10, sharp in nature with some radiation to her groin which started earlier today and associated with nausea but no vomiting. States this feels exactly like previous episodes. Denies any recent traumas, travels, illnesses, fevers, chest pain, shortness of breath, dysuria, hematuria, diarrhea or blood in stool. Denies any vaginal bleeding, discharge or pain. Denies any history of STIs. Review of Systems Review of Systems Constitutional: Denies fever or chills [] Eyes: Denies change in visual acuity, redness, or eye pain [] HENT: Denies nasal congestion or sore throat [] Respiratory: Denies cough or shortness of breath [] Cardiovascular: No additional information not addressed in HPI [] GI: Denies abdominal pain, nausea, vomiting, bloody stools or diarrhea [] : Denies dysuria or hematuria [] Musculoskeletal: Denies back pain or joint pain [] Integument: Denies rash or skin lesions [] Neurologic: Denies headache, focal weakness or sensory changes [] Endocrine: Denies polyuria or polydipsia [] All other systems were reviewed and found to be within normal limits, except as documented in this note. Allergies Allergies Allergies Coded Allergies Type Severity Reaction Last Updated Verified latex Allergy Mild rash 09/11/20 Yes Physical Exam Physical Exam Constitutional: Well developed, well nourished, no acute distress, non-toxic appearance. [] HENT: Normocephalic, atraumatic, bilateral external ears normal, oropharynx moist, no oral exudates, nose normal. [] Eyes: conjunctiva normal, no discharge. [] Cardiovascular:Heart rate regular rhythm, no murmur [] Lungs & Thorax: Bilateral breath sounds clear to auscultation [] Abdomen: soft, no tenderness, no masses, no pulsatile masses. [] Back: CVA tenderness. [] Extremities: No tenderness, no cyanosis, no clubbing, ROM intact, no edema. [] Neurologic: Alert and oriented X 3, no focal deficits noted. [] Psychologic: Affect normal, judgement normal, mood normal. [] EKG EKG [] Radiology/Procedures Radiology/Procedures [] Heart Score C/O Chest Pain: No Risk Factors: Risk Factors: DM, Current or recent (<one month) smoker, HTN, HLP, family history of CAD, obesity. Risk Scores: Risk Factors: DM, Current or recent (<one month) smoker, HTN, HLP, family history of CAD, obesity. Course & Med Decision Making Course & Med Decision Making Patient is a 30-year-old female presents with flank pain Vital signs not concerning. Physical exam noted above. Given pain and nausea medicine. Laboratory analysis notable for probable urinary tract infection. CT with some stranding about the left distal ureter, suggesting UTI versus pyelonephritis versus passed renal stone Discussed all findings with patient. Started on antibiotics. Discussed pain management at home. Advised to follow-up tomorrow with primary care physician to update on ED visit. Gave return precautions to the ED. Patient grateful, verbalized understanding and agree with plan of discharge. [] Dragon Disclaimer Dragon Disclaimer This electronic medical record was generated, in whole or in part, using a voice recognition dictation system. Departure Departure: Impression: Primary Impression: Flank pain Additional Impression: Pyelonephritis Disposition: HOME / SELF CARE / HOMELESS Condition: GOOD Referrals: MINE CARRILLO MD (PCP) Patient Instructions: Kidney Stones Additional Instructions: Thank you for coming into the emergency department tonight and allowing us to take care of you. Please read the attached information carefully to go back over some of the things we discussed. Please continue ibuprofen as we discussed and use your pain and nausea medicine as prescribed and as needed. Please follow-up with your primary care physician soon as you can to update on ED visit, set up a follow-up and discuss need for further evaluation and treatment by urologist. Scripts Levofloxacin (LEVOFLOXACIN) 500 Mg Tablet 1 TAB PO DAILY for pyelonephritis for 6 Days, #6 TAB Prov: LUIS ANGEL KING MD 01/16/21 Problem Qualifiers LUIS ANGEL KING MD Jan 16, 2021 18:56
[2021-01-16 19:13] VITALS: BP 136/77
[2021-01-16 19:29] LABS: BASO % 0 % (0-3); EOS # 0.1 x10^3/uL (0.0-0.7); EOS % 1 % (0-3); HEMATOCRIT 41.7 % (36.0-47.0); HEMOGLOBIN 13.9 g/dL (12.0-15.5); LYMPH # 1.9 x10^3/uL (1.0-4.8); LYMPH % 18 % (24-48); MEAN CORPUSCULAR HEMOGLOBIN 30 pg (25-35); MEAN CORPUSCULAR HGB CONC 33 g/dL (31-37); MEAN CORPUSCULAR VOLUME 89 fL (79-100); MONO # 0.6 x10^3/uL (0.0-1.1); MONO % 6 % (0-9); NEUT # 7.8 x10^3uL (1.8-7.7); NEUT % 75 % (31-73); PLATELET COUNT 179 x10^3/uL (140-400); RED BLOOD COUNT 4.69 x10^6/uL (3.50-5.40); RED CELL DISTRIBUTION WIDTH 13.4 % (11.5-14.5); WHITE BLOOD COUNT 10.5 x10^3/uL (4.0-11.0)
[2021-01-16] MEDS ORDERED: KETOROLAC 15 MG/ML VIAL. ONE (19:30)
[2021-01-16] MEDS ORDERED: KETOROLAC 15 MG/ML VIAL. IVP ONE (19:30)
--- NOTE | 2021-01-16 19:30 | RAD ---
EXAM: CT ABDOMEN/PELVIS WITHOUT CONTRAST. HISTORY: Flank pain, nephroureterolithiasis status post lithotripsy and ureteral stenting. TECHNIQUE: Computed tomography of the abdomen and pelvis was performed without intravenous contrast. One or more of the following individualized dose reduction techniques were utilized for this examinat ion: 1. Automated exposure control. 2. Adjustment of the mA and/or kV according to patient size. 3. Use of iterative reconstruction technique. COMPARISON: 10/26/2020. FINDINGS: Lung windows through the visualized portions of the bases reveal a 3 mm uncalcified nodule in the right middle lobe, almost certainly benign in this demographic. Bone windows reveal no suspici ous lesions. The gallbladder is surgically absent. The liver, spleen, adrenal glands and pancreas are unremarkable without contrast. There are no pathologically enlarged lymph nodes. The uterus and ovaries are unremarkable by noncontrast CT. The appendix is not inflamed. There is no small bowel obstruction. Single calculi within the renal collecting systems bilaterally measure 3 mm or less. There is mild ur othelial thickening on the right. There is no hydronephrosis. There is mild stranding about the left distal ureter. There are no ureteral calculi. There are no bladder calculi. IMPRESSION: 1. Mild stranding about the left distal ureter. Mild right upper tract urothelial thickening. Correla te to exclude ascending infection. 2. Bilateral renal calculi measure 3 mm or less. No ureteral calculi. Electronically signed by: Yanick Anthony MD (01/16/2021 7:27 PM) [id number]
[2021-01-16 19:46] LABS: BACTERIA,URINE MOD /HPF (0-FEW); BILIRUBIN,URINE NEG (NEG); CLARITY,URINE CLOUDY; COLOR,URINE YELLOW; GLUCOSE,URINE NEG (NEG); NITRITE,URINE NEG (NEG); UROBILINOGEN,URINE 0.2 mg/dL (0.2 mg/dL); WBC,URINE TNTC /HPF (0-4)
[2021-01-16 19:47] LABS: CALCIUM 8.6 mg/dL (8.5-10.1); CREATININE 0.8 mg/dL (0.6-1.0); GFR 85.4; POTASSIUM 3.5 mmol/L (3.5-5.1)
[2021-01-16] MEDS ORDERED: LEVO500T9 PO (20:06)
[2021-01-16] MEDS ORDERED: levoFLOXacin 500 MG TABLET PO ONE (20:15)
[2021-01-16] MEDS ORDERED: oxyCODONE/APAP 10/325 1 TAB TABLET PO ONE (20:15)
== END 2021-01-16 20:30 | disposition home or self-care (01) ==
LOC: ER 18:45
DX: N12 Tubulo-interstitial nephritis, not specified as acute or chronic (principal); Z91.040 Latex allergy status; Z90.49 Acquired absence of other specified parts of digestive tract
CPT/HCPCS: 36415; 74176; 80048; 81001; 81025; 85025; 87086; 96374; 96375; 99284; J1885; J3010; 87147